=== PATIENT | female | born 1935 | race Caucasian/White ===

== ENCOUNTER 2016-12-11 14:22 | Inpatient (IN) | payer OTHER ==
[~2016-12-11] VITALS: Ht 154.9 cm; Wt 59.7 kg
[2016-12-11 16:26] LABS: EOSINOPHIL (%) 0.6 % (0-5); EOSINOPHIL COUNT 0.1 K/uL (0-0.3); HEMATOCRIT 43.7 % (36.0-46.0); IMMATURE GRANULOCYTE (%) 0.6 % (0.0-0.7); IMMATURE GRANULOCYTE COUNT 0.1 K/uL; INSTRUMENT ABS NEUTROPHIL CT 12.1 K/uL; LYMPHOCYTE COUNT 0.9 K/uL (1.0-2.8); MCH 30.1 PG (29.0-34.0); MCV 91.2 FL (83-99); MEAN PLAT.VOLUME 10.1 uM^3 (9.5-12.4); MONOCYTE (%) 5.9 % (3-12); MONOCYTE COUNT 0.8 K/uL (0-0.8); NEUTROPHIL (%) 86.4 % (45-76); NEUTROPHIL COUNT 12.1 K/uL (1.8-6.4); PLATELET COUNT 234 K/uL (156-360); RBC DIS.WIDTH-CV 12.7 % (11.8-14.6); RBC DIS.WIDTH-SD 42.4 % (39-53); RED BLOOD COUNT 4.79 M/uL (3.80-5.20)
[2016-12-11 16:35] LABS: CHLORIDE 109 mEq/L (99-109); POTASSIUM 3.8 mEq/L (3.7-5.4); SODIUM 142 mEq/L (136-147)
[2016-12-11 16:37] LABS: GLUCOSE 93 mg/dL (70-99)
[2016-12-11 16:38] LABS: ANION GAP 9 MEQ/L (2-14)
[2016-12-11 16:39] LABS: TOTAL BILIRUBIN 0.5 mg/dL (0.0-1.0)
[2016-12-11 16:40] LABS: ALKALINE PHOSPHATASE 63 IU/L (3-129)
[2016-12-11 16:41] LABS: GFR ESTIMATE (CALCULATED) > 59 mL/min/
[2016-12-11 16:42] LABS: UREA NITROGEN (BUN) 18 mg/dL (9-23)
[2016-12-11 16:44] LABS: LIPASE 20 U/L (1.0-51.0)
[2016-12-11 16:47] LABS: TROP-I INTERPRETATION NEGATIVE; TROPONIN-I < 0.01 ng/mL (0.0-0.30)
[2016-12-11 17:07] LABS: ADD MIUA? YES; BILIRUBIN NEGATIVE; BLOOD MODERATE; COLOR YELLOW ((YELLOW)); GLUCOSE (STRIP) NEGATIVE; KETONES NEGATIVE; LEUKOCYTES MODERATE; NITRITE NEGATIVE; PROTEIN (STRIP) NEGATIVE; SPECIFIC GRAVITY 1.012 (1.000-1.030); UROBILINOGEN 0.2 MG/DL (0.2-1.0)
[2016-12-11 18:09] LABS: BACTERIA RARE /HPF; CASTS PRESENT /LPF; CRYSTALS NONE SEEN; EPITHELIAL CELLS RARE /HPF; HYALINE CASTS 0-5 /LPF; MUCUS 1+ /LPF; UCUL ADDED? NO
[2016-12-11] MEDS ORDERED: SYNTHROID75 MCG PO (19:46)
[2016-12-11] MEDS ORDERED: FLONASE16 G1 BOTH NARES (19:46)
[2016-12-11] MEDS ORDERED: DICYCLOMINE HCL20 MG PO (19:46)
[2016-12-11] MEDS ORDERED: CREON 61 CAPSULE PO (19:46)
[2016-12-11] MEDS ORDERED: LIPITOR20 MG PO (19:46)
[2016-12-11] MEDS ORDERED: XYZAL5 MG PO (19:47)
[2016-12-11] MEDS ORDERED: ANTIVERT12.5 MG PO (19:47)
[2016-12-11] MEDS ORDERED: FLUOXETINE HCL10 M1 PO (19:47)
[2016-12-11] MEDS ORDERED: LO-DOSE ASPIRIN81 M2 PO (19:47)
[2016-12-11] MEDS ORDERED: TEGRETOL100 MG PO (19:47)
[2016-12-11] MEDS ORDERED: IMODIUM A-D2 M2 PO (19:48)
[2016-12-11 23:30] VITALS: BP 130/77
[2016-12-12 00:53] LABS: TROP-I INTERPRETATION NEGATIVE; TROPONIN-I < 0.01 ng/mL (0.0-0.30)
[2016-12-12 04:13] VITALS: BP 108/51
[2016-12-12 05:45] LABS: EOSINOPHIL (%) 2.6 % (0-5); EOSINOPHIL COUNT 0.2 K/uL (0-0.3); HEMATOCRIT 36.6 % (36.0-46.0); IMMATURE GRANULOCYTE (%) 0.3 % (0.0-0.7); INSTRUMENT ABS NEUTROPHIL CT 4.1 K/uL; LYMPHOCYTE COUNT 2.1 K/uL (1.0-2.8); MCHC 33.3 G/DL (30.0-36.0); MCV 93.1 FL (83-99); MEAN PLAT.VOLUME 10.6 uM^3 (9.5-12.4); MONOCYTE (%) 7.6 % (3-12); MONOCYTE COUNT 0.5 K/uL (0-0.8); NEUTROPHIL (%) 59.2 % (45-76); NEUTROPHIL COUNT 4.1 K/uL (1.8-6.4); PLATELET COUNT 215 K/uL (156-360); RBC DIS.WIDTH-CV 12.9 % (11.8-14.6); RBC DIS.WIDTH-SD 44.2 % (39-53); RED BLOOD COUNT 3.93 M/uL (3.80-5.20); TROP-I INTERPRETATION NEGATIVE; TROPONIN-I < 0.01 ng/mL (0.0-0.30)
[2016-12-12 05:55] LABS: ALKALINE PHOSPHATASE 52 IU/L (3-129); DIRECT BILIRUBIN 0.2 mg/dL (0.0-0.3); TOTAL BILIRUBIN 0.7 MG/DL (0.0-1.0)
[2016-12-12 11:44] VITALS: BP 144/66
[2016-12-12 12:09] LABS: C DIFF TOXIN NEGATIVE (NEGATIVE)
[2016-12-12 12:13] LABS: PROBE CHECK PASS; SPECIMEN PROCESSING CONTROL PASS
[2016-12-12 15:15] VITALS: BP 155/66
[2016-12-12 19:28] VITALS: BP 132/78
[2016-12-13 00:14] VITALS: BP 122/62
[2016-12-13 06:11] LABS: MCH 31.1 PG (29.0-34.0); MCHC 33.8 G/DL (30.0-36.0); MEAN PLAT.VOLUME 10.3 uM^3 (9.5-12.4); PLATELET COUNT 215 K/uL (156-360); RBC DIS.WIDTH-CV 12.7 % (11.8-14.6); RBC DIS.WIDTH-SD 42.7 % (39-53); RED BLOOD COUNT 4.24 M/uL (3.80-5.20); WHITE BLOOD COUNT 6.8 K/uL (4.1-10.2)
[2016-12-13 07:14] VITALS: BP 122/76
[2016-12-13 07:26] LABS: GFR ESTIMATE (CALCULATED) > 59 mL/min/; GLUCOSE 96 mg/dL (70-99); POTASSIUM 3.8 MEQ/L (3.7-5.4); SODIUM 144 MEQ/L (136-147); UREA NITROGEN (BUN) 10 mg/dL (9-23)
[2016-12-13 07:27] LABS: CHLORIDE 111 MEQ/L (99-109)
== END 2016-12-13 08:48 | disposition home or self-care (01) | DRG 392 ==
LOC: EME 14:22 → EDOF 21:18 → 5WEST 21:18 → EDOF 21:18 → 5WEST 23:17 → 3EAST 12-12 23:53
PROVIDERS: Emergency Medicine; Hospitalist; Nurse Practitioner Adult Health
DX: R10.13 Epigastric pain (principal); R10.33 Periumbilical pain; K58.0 Irritable bowel syndrome with diarrhea; E03.9 Hypothyroidism, unspecified; E78.5 Hyperlipidemia, unspecified; T15.82XA Foreign body in other and multiple parts of external eye, left eye, initial encounter; F41.9 Anxiety disorder, unspecified; I10 Essential (primary) hypertension; J98.4 Other disorders of lung; E86.0 Dehydration; R11.2 Nausea with vomiting, unspecified; R55 Syncope and collapse; X58.XXXA Exposure to other specified factors, initial encounter; Y92.9 Unspecified place or not applicable; Z88.2 Allergy status to sulfonamides; Z83.3 Family history of diabetes mellitus; Z82.61 Family history of arthritis
CPT/HCPCS: 70450; 71010; 74177; 80048; 80053; 80076; 81003; 83605; 83690; 84484; 85025; 85027; 87086; 87177; 87329; 87493; 93005; 93880; 99281; 99285; G0378; J1170; J2405; J2765; J3010; J7030; S0028

== ENCOUNTER 2018-01-01 21:36 | Emergency (ER) | payer OTHER ==
[~2018-01-01] VITALS: Ht 154.9 cm; Wt 58.2 kg
[~2018-01-01 21:36] MED LIST: ANTIVERT12.5 MG PO; CREON 61 CAPSULE PO; DICYCLOMINE HCL20 MG PO; FLONASE16 G1 BOTH NARES; FLUOXETINE HCL10 M1 PO; IMODIUM A-D2 M2 PO; LIPITOR20 MG PO; LO-DOSE ASPIRIN81 M2 PO; SYNTHROID75 MCG PO; TEGRETOL100 MG PO; XYZAL5 MG PO
[2018-01-02 01:04] VITALS: BP 142/79
== END 2018-01-02 01:05 | disposition home or self-care (01) ==
LOC: EME 21:36
DX: S06.0X0A Concussion without loss of consciousness, initial encounter (principal); S00.01XA Abrasion of scalp, initial encounter; W17.89XA Other fall from one level to another, initial encounter; W22.09XA Striking against other stationary object, initial encounter; Z79.82 Long term (current) use of aspirin; E78.5 Hyperlipidemia, unspecified; K58.9 Irritable bowel syndrome, unspecified; Z85.9 Personal history of malignant neoplasm, unspecified; Z90.49 Acquired absence of other specified parts of digestive tract; Z90.710 Acquired absence of both cervix and uterus; Z88.2 Allergy status to sulfonamides
CPT/HCPCS: 70450; 72125; 99281; 99285